=== PATIENT | female | born 1970 | race Caucasian/White ===

== ENCOUNTER 2022-02-14 11:48 | Day surgery (SDC) | payer OTHER ==
[2022-02-09 11:05] LABS: BASOPHILS % (AUTO) 0.4 % (0-1); EOSINOPHILS # (AUTO) 0.2 X10'3 (0-0.9); EOSINOPHILS % (AUTO) 2.6 % (0-6); LYMPHOCYTES # (AUTO) 2.1 X10'3 (1.1-4.8); LYMPHOCYTES % (AUTO) 30.4 % (21-51); MEAN CORPUSCULAR HEMOGLOBIN 30.1 PG (27.0-31.0); MEAN CORPUSCULAR HGB CONC 35.3 g/dL (33.0-36.5); MEAN CORPUSCULAR VOLUME 85.1 FL (78-98); MONOCYTES # (AUTO) 0.4 X10'3 (0-0.9); MONOCYTES % (AUTO) 6.6 % (2-12); NEUTROPHILS # (AUTO) 4.1 X10'3 (1.8-7.7); PRE OP HEMATOCRIT 41.4 % (35.0-45.0); PRE OP HEMOGLOBIN 14.6 g/dL (12.0-16.0); PRE OP PLATELET COUNT 208 X10'3 (140-440); RED BLOOD COUNT 4.87 X10'6 (4.20-5.60); RED CELL DISTRIBUTION WIDTH 13.1 % (11.5-14.5)
[2022-02-09 11:28] LABS: ALBUMIN 3.3 G/DL (3.4-5.0); ALBUMIN/GLOBULIN RATIO 0.9 (1.1-1.5); ALKALINE PHOSPHATASE 114 IU/L (46-116); BLOOD UREA NITROGEN 16 MG/DL (7-18); BUN/CREATININE RATIO 21.3 (6.6-38.0); CALCIUM 8.9 MG/DL (8.5-10.1); CHLORIDE 108 MMOL/L (99-107); CREATININE 0.75 MG/DL (0.40-0.90); PRE OP ALT 40 U/L (30-65); PRE OP ANION GAP 8 (8-16); PRE OP AST 18 U/L (10-37); PRE OP BILIRUB, TOTAL 0.3 MG/DL (0.0-1.0); PRE OP GLUCOSE 107 MG/DL (70-104); PRE OP SODIUM 144 MMOL/L (135-145); TOTAL CARBON DIOXIDE 27.6 MMOL/L (24-32); eGFR 81 ML/MIN
[~2022-02-14] VITALS: Ht 152.4 cm; Wt 101.0 kg
[~2022-02-14 11:48] MED LIST: ALLO100T PO; ATEN50TA8 PO; DOCUMENT DATE & TIME OF BETA-BLOCKER PO ONE; OMEP40CA21 PO; ceFAZolin inj. 2,000 MG in dextrose 5%-water 100 ML IV ONE; famotidine 20mg tablet PO ONE; ringers solution, lacted 1,000 ML IV SCH
[2022-02-14 12:41] VITALS: BP 133/80
[2022-02-14] MEDS ORDERED: LIDOcaine 1% 30ml preserv. free vial ONE (13:57)
[2022-02-14] MEDS ORDERED: BUPIVAcaine/PF 2.5 mg/ml (0.25%) 30ml vial ONE ×2 (13:57→13:59)
[2022-02-14] MEDS ORDERED: BUPIVACAINE liposomal/PF 13.3 MG/ML vial IM ONE (13:59)
[2022-02-14] MEDS ORDERED: morphine 4 MG/ML inj SYRINge IV PRN (14:05)
[2022-02-14] MEDS ORDERED: morphine 2 MG/ML inj. syringe IV PRN (14:05)
[2022-02-14] MEDS ORDERED: meperidine/PF 25mg/ml syringe IV PRN ×3 (14:05)
[2022-02-14] MEDS ORDERED: proCHLORperazine 10 MG/2 ml inj IV PRN (14:05)
[2022-02-14] MEDS ORDERED: ringers solution, lacted 1,000 ML IV SCH (14:05)
[2022-02-14] MEDS ORDERED: ondansetron/PF 4mg/2ml inj IV PRN (14:05)
[2022-02-14] MEDS ORDERED: fentaNYL/PF 50MCG/1 ML 2ML syringe ONE (14:08)
[2022-02-14] MEDS ORDERED: midazolam 1 mg/ML 2ml injection ONE (14:08)
[2022-02-14] MEDS ORDERED: rocuronium 10mg/ml inj IV ONE (14:10)
[2022-02-14] MEDS ORDERED: propofol inj 20 ML IV ONE (14:10)
[2022-02-14] MEDS ORDERED: dexamethasone sod phosphate 4mg/ml inj. ONE (15:12)
[2022-02-14] MEDS ORDERED: ondansetron/PF 4mg/2ml inj ONE (15:12)
[2022-02-14] MEDS ORDERED: sugammadex 200mg/2ml injection IV ONE (15:14)
[2022-02-14 15:27] VITALS: BP 133/80
--- NOTE | 2022-02-14 15:27 | NUR ---
Received from OR via [facility] IN STABLE CONDITION , accompanied by Anesthesiologist and PERCH MENDER report given by PERCH MENDER AND Anesthesiolgist. Addendum: 02/14/22 at 1602 by Jessy Mcdonald RN Amended: Links added.
[2022-02-14 15:40] VITALS: BP 126/82
[2022-02-14] MEDS ORDERED: oxyCODONE/APAP 5-325mg tablet PO PRN (15:40)
[2022-02-14 15:50] VITALS: BP 116/72
[2022-02-14 16:00] VITALS: BP 119/79
[2022-02-14 16:10] VITALS: BP 115/66
--- NOTE | 2022-02-14 16:27 | NUR ---
PATIENT DISCHARGED FROM PACU IN STABLE CONDITION AFTER WRITTEN AND VERBAL DISCHARGE INSTRUCTIONS. PATIENT GAVE VERBAL UNDERSTANDING OF INSTRUCTIONS GIVEN. PATIENT LEFT FACILITY VIA WHEELCHAIR WITH RN. Addendum: 02/14/22 at 1637 by Jessy Mcdonald RN Amended: Links added.
== END 2022-02-14 16:27 | disposition home or self-care (01) ==
LOC: PAS 11:48
PROVIDERS: ATTEND Surgery
DX: K42.9 Umbilical hernia without obstruction or gangrene (principal); K21.9 Gastro-esophageal reflux disease without esophagitis; M10.9 Gout, unspecified; I10 Essential (primary) hypertension; Z90.49 Acquired absence of other specified parts of digestive tract; Z79.899 Other long term (current) drug therapy; Z98.890 Other specified postprocedural states; Z98.51 Tubal ligation status
CPT/HCPCS: 36415; 49652; 64488; 80053; 82948; 85025; 87811; 93005; C1781; C9290; J0690; J1100; J2175; J2250; J2405; J2704; J3010; J3490; J7030; J7060; J7120; S2900; Z7506; Z7508; Z7512; A4215; A4618